=== PATIENT | male | born 1940 | race Caucasian/White ===

== ENCOUNTER 2021-01-31 17:53 | Emergency (ER) | payer MEDICARE, OTHER ==
[~2021-01-31] VITALS: Ht 162.6 cm; Wt 72.0 kg
[~2021-01-31 17:53] MED LIST: HYDR100T26 PO; LOSA100T32 PO; METF-415 PO; METO-293 PO; NAPR-681 PO; OMEP20TA2 PO
[2021-01-31] MEDS ORDERED: HYDROCODONE/ACETAMINOPHEN 5/325MG TABLET PO ONE (18:45)
[2021-01-31] MEDS ORDERED: LEVOFLOXACIN 500MG TABLET PO ONE (18:45)
[2021-01-31 18:55] VITALS: BP 114/72
[2021-01-31] MEDS ORDERED: CLIN300C12 MT (19:13)
[2021-01-31] MEDS ORDERED: IBUP-2029 MT (19:13)
[2021-01-31] MEDS ORDERED: T3 PO (19:13)
== END 2021-01-31 19:36 | disposition home or self-care (01) ==
LOC: ER 17:53
DX: S61.211A Laceration without foreign body of left index finger without damage to nail, initial encounter (principal); E11.9 Type 2 diabetes mellitus without complications; I10 Essential (primary) hypertension; Z98.890 Other specified postprocedural states; Z79.899 Other long term (current) drug therapy; Z88.0 Allergy status to penicillin; W27.0XXA Contact with workbench tool, initial encounter; Y93.89 Activity, other specified; Y92.89 Other specified places as the place of occurrence of the external cause; Y99.8 Other external cause status
CPT/HCPCS: 12002; 99283